=== PATIENT | male | born 1985 | race Caucasian/White ===

== ENCOUNTER 2019-03-05 18:30 | Emergency (ER) | payer OTHER ==
[~2019-03-05] VITALS: Ht 175.3 cm; Wt 102.1 kg
[~2019-03-05 18:30] MED LIST: LEVSIN/SL0.125 MG SL; PROTONIX40 MG PO
== END 2019-03-05 21:53 | disposition home or self-care (01) ==
LOC: ER 18:30
DX: J11.1 Influenza due to unidentified influenza virus with other respiratory manifestations (principal); R50.9 Fever, unspecified

== ENCOUNTER 2020-01-16 23:49 | Emergency (ER) | payer OTHER ==
[~2020-01-16] VITALS: Ht 180.3 cm; Wt 124.7 kg
== END 2020-01-17 02:55 | disposition home or self-care (01) ==
LOC: ER 23:49
DX: R50.9 Fever, unspecified (principal); Z03.818 Encounter for observation for suspected exposure to other biological agents ruled out